=== PATIENT | female | born 1975 | race Hispanic/Latino ===

== ENCOUNTER 2019-04-14 10:15 | Outpatient (CLI) | payer OTHER ==
--- NOTE | 2019-04-14 11:53 | Mammography Report ---
RIGHT DIGITAL DIAGNOSTIC MAMMOGRAM CLINICAL: For clip placement after ultrasound guided needle biopsy. COMPARISON: [facility] 02/08/2019 mammogram FINDINGS: A biopsy clip is now identified within the previously described circumscribed mass at 7:00. IMPRESSION: Concordant clip deployment. Signer Name: Agustín Chambers MD Signed: 04/14/2019 11:49 AM Workstation Name: [id number]
--- NOTE | 2019-04-14 12:52 | Ultrasound Report ---
ULTRASOUND-GUIDED NEEDLE CORE BIOPSY RIGHT BREAST WITH CLIP PLACEMENT CLINICAL: A solid mass at 6:00 4 cm from the nipple. COMPARISON: [facility] 03/28/2019 mammogram and right breast ultrasound. FINDINGS: The procedure was explained to the patient and informed consent was obtained. Ultrasound demonstrated the previously identified a circumscribed solid irregular hypoechoic mass at 7:00 4 cm from the nipple measuring 1.4 x 0.6 x 0.9 cm. It correlates with the lesion described to be at 6:00.. A marker breast with a felt tip marker and a timeout was called. The skin was prepped with Chloro-Pre p and anesthetized with 1% lidocaine. Needle core biopsy was performed through tiny dermatotomy using ultrasound guidance, 2% lidocaine wit h epinephrine for deep anesthesia and a 14-gauge Achieve biopsy device. 4 cores were obtained and curtis aviva in formalin. A clip was deployed within the lesion. The patient tolerated the procedure well and there were no apparent convocations. Hemostasis was achi eved with minimal effort and a sterile dressing was applied. A post procedure mammogram demonstrated concordant clip deployment. She left the department in good c ondition and was given instructions for wound care and follow-up. IMPRESSION: Uncomplicated ultrasound guided needle core biopsy with clip placement right breast. Signer Name: Agustín Chambers MD Signed: 04/14/2019 12:48 PM Workstation Name: [id number]
== END 2019-04-14 10:16 | disposition home or self-care (01) ==
LOC: SPVWC 10:15
PROVIDERS: ATTEND Surgery
DX: N63.13 Unspecified lump in the right breast, lower outer quadrant (principal); N64.89 Other specified disorders of breast
CPT/HCPCS: 19083; 77065; 88305; A4648